=== PATIENT | male | born 1965 | race Caucasian/White ===

== ENCOUNTER 2018-03-27 21:54 | Inpatient (IN) ==
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
[2018-03-27 22:46] LABS: Baso % (Auto) 0.6 % (0.0-2.0); Eos # (Auto) 0.1 th/mm3 (0.0-0.4); Eos % (Auto) 1.4 % (0.0-4.0); Hemoglobin 15.9 gm/dL (13.0-17.0); Lymph # (Auto) 2.8 th/mm3 (1.0-4.8); Lymph % (Auto) 34.6 % (9.0-44.0); Mean Corpuscular Hemoglobin 32.9 pg (27.0-34.0); Mean Corpuscular Volume 91.5 fL (80.0-100.0); Mean Platelet Volume 8.6 fL (7.0-11.0); Mono # (Auto) 0.7 th/mm3 (0.0-0.9); Mono % (Auto) 8.9 % (0.0-8.0); Neut # (Auto) 4.3 th/mm3 (1.8-7.7); Neut % (Auto) 54.5 % (16.0-70.0); Platelet Count 232 th/mm3 (150-450); Red Blood Count 4.81 mil/mm3 (4.50-5.90); Red Cell Distribution Width 12.2 % (11.6-17.2)
[2018-03-27 23:03] LABS: Alanine Aminotransferase 69 U/L (12-78); Albumin 4.2 g/dL (3.4-5.0); Anion Gap 7 meq/L (5-15); Aspartate Aminotransferase 91 U/L (15-37); Blood Urea Nitrogen 21 mg/dL (7-18); Calcium 8.8 mg/dL (8.5-10.1); Carbon Dioxide 28.3 meq/L (21.0-32.0); Chloride 106 meq/L (98-107); Glomerular Filtration Rate 58 mL/min (>89); Glucose,Random 111 mg/dL (74-106); Magnesium 2.2 mg/dL (1.5-2.5); Potassium 3.2 meq/L (3.5-5.1); Sodium 141 meq/L (136-145)
[2018-03-27 23:04] LABS: Amphetamine Screen,Urine Neg (Neg); Barbiturate Screen,Urine Neg (Neg); Cannabinoid Screen,Urine Neg (Neg); Cocaine Screen,Urine Neg (Neg)
[2018-03-27 23:08] LABS: Opiate Screen,Urine Neg (Neg)
[2018-03-27 23:13] LABS: Alkaline Phosphatase 100 U/L (45-117); Total Protein 8.2 g/dL (6.4-8.2)
[2018-03-28 00:20] LABS: Platelet Estimate Normal (Normal); Platelet Morphology Normal (Normal)
[2018-03-28] MEDS ORDERED: Ibuprofen 400 MG Tablet PO ONE (13:16)
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
[2018-03-28] MEDS ORDERED: Aluminum/Magnesium/Simethacone Susp 30 ML UDC PO PRN (13:55)
[2018-03-28] MEDS: Ibuprofen 600 MG Tablet PO SCH ×2 (17:59→21:16)
[2018-03-29] MEDS: Ibuprofen 600 MG Tablet PO SCH (05:02)
[2018-03-29 07:38] LABS: Calcium 8.6 mg/dL (8.5-10.1); Carbon Dioxide 25.6 meq/L (21.0-32.0); Potassium 3.8 meq/L (3.5-5.1)
[2018-03-29 07:42] LABS: Chol/HDL Ratio 5.02 Ratio
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
[2018-03-29] MEDS ORDERED: Butalbital/APAP/Caff 50/325/40 MG Tablet PO ONE (11:43)
[2018-03-29] MEDS: Duloxetine 60 MG DR Capsule PO SCH (12:09)
[2018-03-29 17:13] LABS: Hemoglobin A1c 5.3 % (4.3-6.0)
[2018-03-29] MEDS: Melatonin 5 MG Tablet PO PRN (20:54)
[2018-03-29] MEDS: Ibuprofen 600 MG Tablet PO PRN (20:54)
[2018-03-30] MEDS: Duloxetine 60 MG DR Capsule PO SCH (08:26)
[2018-03-30] MEDS: Ibuprofen 600 MG Tablet PO PRN (08:30)
[2018-03-30 09:32] LABS: Anion Gap 10 meq/L (5-15); Aspartate Aminotransferase 88 U/L (15-37); Blood Urea Nitrogen 20 mg/dL (7-18); Calcium 8.8 mg/dL (8.5-10.1); Carbon Dioxide 26.5 meq/L (21.0-32.0); Chloride 106 meq/L (98-107); Glomerular Filtration Rate 64 mL/min (>89); Glucose,Random 95 mg/dL (74-106); Potassium 3.6 meq/L (3.5-5.1); Sodium 142 meq/L (136-145)
[2018-03-30 09:34] LABS: Alanine Aminotransferase 82 U/L (12-78)
[2018-03-30 09:35] LABS: Alkaline Phosphatase 101 U/L (45-117); Total Protein 7.7 g/dL (6.4-8.2)
--- NOTE | 2018-03-30 12:41 | P.PNPSY ---
Subjective Chief Complaint: Depression, SI Remarks: Patient seen and examined with nurse. Chart reviewed. Case discussed with nursing staff. No behavioral issues noted. Case discussed in treatment team. Counselor has endeavored to obtain collateral information from family without success so far. On my examination today, the patient reports his mood is improving. He did have some anxiety this morning upon awakening, but this responded well to Vistaril. He denies any suicidal ideation. No side effects from medications. Patient is agreeable to titrating Cymbalta over the weekend. No physical complaints. Patient is agreeable to remaining on the inpatient unit through the weekend for observation. Vital Signs Temp Pulse Resp BP Pulse Ox 03/30/18 05:27 98.2 F 71 18 101/62 96 03/29/18 21:55 16 03/29/18 18:01 97.3 F L 96 H 145/90 H 94 L Intake and Output 03/29/18 03/30/18 03/30/18 22:59 06:59 14:59 Intake Total 600 / 600 Balance 600 / 600 Intake: Oral 600 / 600 Laboratory Results - last 24 hr 03/29/18 03/30/18 06:27 07:54 Sodium 142 Potassium 3.6 Chloride 106 Carbon Dioxide 26.5 Anion Gap 10 BUN 20 H Creatinine 1.19 Estimated GFR 64 L Random Glucose 95 Hemoglobin A1c 5.3 Calcium 8.8 Total Bilirubin 0.8 AST 88 H ALT 82 H Alkaline Phosphatase 101 Total Protein 7.7 Albumin 4.0 Labs reviewed. GFR stable. Mild transaminitis. Review of Systems All other systems reviewed negative except as stated in HPI Mental Status Examination Appearance: Appropriate Consciousness: Alert Orientation: x4 Motor Activity: Normal gait, Other (No abnormal motor movements noted) Speech: Unremarkable Language: Adequate Fund of Knowledge: Adequate Attention and Concentration: Adequate Memory: Unremarkable Mood: Other (Depressed, improving) Affect: Appropriate Thought Process & Associations: Intact, Logical, Goal directed, Linear Thought Content: Appropriate Hallucination Type: None Delusion Type: None Suicidal Ideation: No Suicidal Plan: No Suicidal Intention: No Homicidal Ideation: No Insight: Fair Judgment: Adequate Assessment and Plan - Assessment (1) Major depressive disorder, recurrent severe without psychotic features Code(s): F33.2 - Major depressive disorder, recurrent severe without psychotic features Status: Acute - Plan Plan: Titrate Cymbalta over the weekend to 90 mg daily to target residual dysphoria. Check a CMP Monday morning to follow-up decreased GFR and mild transaminitis. Ibuprofen as needed for pain/headache; GFR stable. Continue to monitor on the inpatient unit. Continue other medications and care as ordered. Justification for Continued Inpatient Stay: Medication changes. Monitoring for impairment in safety. Discharge Planning: Anticipate discharge after the weekend Request Healthcare Surrogate/Guardian Advocate?: No
--- NOTE | 2018-03-30 15:27 | ECG ---
Date Performed: 03/29/2018 Time Performed: 10:32:02 PTAGE: 52 years EKG: Sinus rhythm RIGHT BUNDLE BRANCH BLOCK ABNORMAL ECG NO PREVIOUS TRACING DOCTOR: Samreen Marinelli Interpretating Date/Time 03/30/2018 15:21:36
--- NOTE | 2018-03-30 15:35 | P.TTN ---
- Patient Problems Problems: 1. Discharge planning 2. Medication compliance 3. Knowledge deficit 4. Lack of coping skills - Progress Toward Goals Provider Present: Dr. Julissa Mann (03/30- Adjust cymbalta. Will observe over the weekend) Psychiatric Counselors Present: Raghu Mercer Jr., RCSWI (03/30- Therapist attempted to call this patients sister. Will try again later) - Documentation Teaching Recipient: Patient
[2018-03-30] MEDS: Melatonin 5 MG Tablet PO PRN (21:32)
[2018-03-31] MEDS: Duloxetine 60 MG DR Capsule PO SCH (08:32)
[2018-03-31] MEDS: Ibuprofen 600 MG Tablet PO PRN (08:56)
--- NOTE | 2018-03-31 11:42 | P.PNPSY ---
Subjective Chief Complaint: Depression, SI Remarks: Patient was seen and case discussed with nursing. Patient says he is doing "better." He denies suicidal or homicidal ideation and plan. Somewhat guarded and vague during the interview. Behaving well on the unit and compliant with medications. Mental Status Examination Appearance: Appropriate Consciousness: Alert Orientation: x4 Motor Activity: Normal gait, Other (No abnormal motor movements noted) Speech: Unremarkable Language: Adequate Fund of Knowledge: Adequate Attention and Concentration: Adequate Memory: Unremarkable Mood: Other (Depressed, improving) Affect: Blunt Thought Process & Associations: Intact, Logical, Goal directed, Linear Thought Content: Appropriate Hallucination Type: None Delusion Type: None Suicidal Ideation: No Suicidal Plan: No Suicidal Intention: No Homicidal Ideation: No Homicidal Plan: No Homicidal Intention: No Insight: Fair Judgment: Adequate Assessment and Plan - Assessment (1) Major depressive disorder, recurrent severe without psychotic features Code(s): F33.2 - Major depressive disorder, recurrent severe without psychotic features Status: Acute - Plan Plan: Continue current treatment plan Justification for Continued Inpatient Stay: Patient would decompensate in a less restrictive setting Request Healthcare Surrogate/Guardian Advocate?: No
[2018-03-31] MEDS: Melatonin 5 MG Tablet PO PRN (20:23)
[2018-04-01 09:35] LABS: Alanine Aminotransferase 66 U/L (12-78); Albumin 3.8 g/dL (3.4-5.0); Anion Gap 9 meq/L (5-15); Aspartate Aminotransferase 82 U/L (15-37); Blood Urea Nitrogen 15 mg/dL (7-18); Calcium 8.6 mg/dL (8.5-10.1); Carbon Dioxide 25.7 meq/L (21.0-32.0); Chloride 107 meq/L (98-107); Glomerular Filtration Rate 64 mL/min (>89); Glucose,Random 85 mg/dL (74-106); Potassium 3.7 meq/L (3.5-5.1); Sodium 142 meq/L (136-145)
[2018-04-01 09:37] LABS: Alkaline Phosphatase 92 U/L (45-117)
--- NOTE | 2018-04-01 12:25 | P.PNPSY ---
Subjective Chief Complaint: Depression, SI Remarks: Medical records reviewed and discussed with nursing staff. Patient in day room eating lunch. Rounded with CORTES Salazar. Patient states that his Cymbalta has been increased to 90 mg. He feels that he has improved and that he is ready for discharge. He denies any SI/HI. Euthymic. Review of Systems All other systems reviewed negative except as stated in HPI Mental Status Examination Appearance: Appropriate Consciousness: Alert Orientation: x4 Motor Activity: Normal gait, Other (No abnormal motor movements noted) Speech: Unremarkable Language: Adequate Fund of Knowledge: Adequate Attention and Concentration: Adequate Memory: Unremarkable Mood: Appropriate Affect: Appropriate Thought Process & Associations: Intact, Logical, Goal directed, Linear Thought Content: Appropriate Hallucination Type: None Delusion Type: None Suicidal Ideation: No Suicidal Plan: No Suicidal Intention: No Homicidal Ideation: No Homicidal Plan: No Homicidal Intention: No Insight: Adequate Judgment: Adequate Assessment and Plan - Assessment (1) MDD (major depressive disorder), recurrent episode, moderate Code(s): F33.1 - Major depressive disorder, recurrent, moderate Status: Acute - Plan Plan: Continue current treatment plan Justification for Continued Inpatient Stay: Moving patient to a less restrictive environment may result in his decompensation. Request Healthcare Surrogate/Guardian Advocate?: No
[2018-04-01] MEDS: Ibuprofen 600 MG Tablet PO PRN (13:59)
[2018-04-01] MEDS: Melatonin 5 MG Tablet PO PRN (20:59)
[2018-04-02 05:13] VITALS: BP 103/63; PULSE 62; RESP 16; TEMP 98.2; O2SAT 93
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
== END 2018-04-02 14:20 | disposition home or self-care (01) ==
LOC: NEPD 21:54 → NEDA 03-28 14:09 → H260 03-28 15:49
PROVIDERS: ADMIT Psychiatry & Neurology Psychiatry; ATTEND Psychiatry & Neurology Psychiatry